=== PATIENT | female | born 1945 | race Asian ===

== ENCOUNTER 2016-06-20 22:46 | Emergency (ER) | payer MEDICARE, BC ==
[~2016-06-20] VITALS: Ht 154.9 cm; Wt 57.0 kg
[2016-06-20 23:01] VITALS: Ht 154.9 cm; Wt 57.0 kg
[2016-06-20] MEDS ORDERED: ONDANSETRON 4 MG INJ IV STA (23:12)
[2016-06-20] MEDS ORDERED: SOD CHLORIDE 0.9% 500 ML IV STA (23:12)
[2016-06-20 23:21] LABS: ADD SCAN DIFF NO
[2016-06-20 23:27] LABS: BASOPHILS % 0.4 % (0.0-2.0); EOSINOPHILS # 0.2 10^3/ul (0.0-0.5); EOSINOPHILS % 2.6 % (0.0-7.0); HEMOGLOBIN 14.9 g/dl (12.0-16.0); LYMPHOCYTES # 1.6 10^3/ul (0.8-2.9); LYMPHOCYTES % 17.6 % (15.0-51.0); MEAN CORPUSCULAR HEMOGLOBIN 30.8 pg (29.0-33.0); MEAN CORPUSCULAR HGB CONC 33.9 g/dl (32.0-37.0); MEAN CORPUSCULAR VOLUME 91.1 fl (82.0-101.0); MEAN PLATELET VOLUME 10.1 fl (7.4-10.4); MONOCYTE # 0.4 10^3/ul (0.3-0.9); MONOCYTES % 4.6 % (0.0-11.0); NEUTROPHIL # 6.8 10^3/ul (1.6-7.5); NEUTROPHILS % 74.4 % (39.0-77.0); PLATELET COUNT 209 10^3/UL (140-415); RED BLOOD COUNT 4.83 10^6/ul (4.20-5.40); RED CELL DISTRIBUTION WIDTH 12.1 % (11.5-14.5); WHITE BLOOD COUNT 9.1 10^3/ul (4.8-10.8)
[2016-06-20] MEDS ORDERED: MECLIZINE 12.5 MG TAB PO ONE (23:30)
[2016-06-20 23:38] LABS: CHLORIDE 101 mmol/L (97-110); INR 0.94; PROTIME 12.6 Sec (12.2-14.2); SODIUM 141 mmol/L (135-144)
[2016-06-20 23:39] LABS: POTASSIUM 3.8 mmol/L (3.5-5.1)
[2016-06-20 23:41] LABS: ANION GAP 17 (8-16); CARBON DIOXIDE 27 mmol/L (21-31); CREATININE 0.76 mg/dl (0.44-1.00)
[2016-06-20 23:42] LABS: BLOOD UREA NITROGEN 20 mg/dl (7-20); GLUCOSE 137 mg/dl (70-220)
--- NOTE | 2016-06-20 23:53 | RADRPT ---
PROCEDURE: XR Chest. CLINICAL INDICATION: Headaches. TECHNIQUE: Portable AP upright view of the chest was obtained. COMPARISON: None available. FINDINGS: The cardiomediastinal silhouette is within upper normal limits. The lungs are clear. There is no e vidence for pleural effusion, pneumothorax or pulmonary vascular congestion. The osseous structures are intact with no evidence for acute abnormality. Retrocardiac density unable to exclude hiatal he rnia. Mild calcification of the aortic arch is visible. Monitoring wires overlie the chest. RPTAT:HJJR IMPRESSION: 1. No evidence for acute intrathoracic pathology. 2. Probable hiatal hernia. 3. Aortic atherosclerosis is present. Physician Faraz Date Time Electronically viewed and signed by Physician Faraz on 06/20/2016 23:53 /
[2016-06-20 23:58] LABS: TROPONIN-I < 0.012 ng/ml (0.00-0.12)
--- NOTE | 2016-06-21 00:27 | RADRPT ---
PROCEDURE: CT brain without contrast CLINICAL INDICATION: Headaches TECHNIQUE: A CT of the brain was performed utilizing axial sections from the skull base through th e vertex without contrast. Sagittal and coronal images were also reformatted. The exam CTDIvol = 39. 64 mGy and DLP = 634.23 mGy-cm. COMPARISON: None available FINDINGS: No acute intracranial hemorrhage is identified. There is no mass effect or midline shift. No extra -axial fluid collection is seen. The ventricles and sulci are within normal limits for size and con figuration for the patient's provided age of 70 years, generalized appropriate tissue loss noted. T he density of the brain is within normal limits. Erazo-white differentiation is preserved. The osseous structures are unremarkable. The mastoid air cells and visualized paranasal sinuses are clear. RPTAT:HJJR IMPRESSION: Unremarkable noncontrast CT of the brain for the patient's provided age. Physician Faraz Date Time Electronically viewed and signed by Physician Faraz on 06/21/2016 00:27 /
--- NOTE | 2016-06-21 00:50 | ERD ---
ER Documentation Chief Complaint Date/Time DATE: 06/21/16 TIME: 00:46 Chief Complaint dizziness since 1900, then vomiting, worse w/ eyes open HPI This is a very pleasant 70 females and dizziness since 1900. She is then developed vomiting. She said the room was spinning. She says is worse with her eyes open. She said it is positional. No focal neurological complaints. No chest pain. No other current complaints. ROS All systems reviewed and are negative except as per history of present illness. Allergies Allergies: Coded Allergies: erythromycin base (Verified Allergy, Unknown, 06/20/16) PMhx/Soc Medical and Surgical Hx: pt denies Surgical Hx History of Surgery: No Anesthesia Reaction: No Hx Neurological Disorder: No Hx Respiratory Disorders: No Hx Cardiac Disorders: Yes (HTN) Hx Psychiatric Problems: No Hx Miscellaneous Medical Probl: No Hx Alcohol Use: No Hx Substance Use: No Hx Tobacco Use: No Smoking Status: Never smoker Physical Exam Vitals Vital Signs Date Time Temp Pulse Resp B/P Pulse Ox O2 Delivery O2 Flow Rate FiO2 06/20/16 23:01 98.3 60 20 161/82 100 Physical Exam Const: [] Head: Atraumatic Eyes: Normal Conjunctiva ENT: Normal External Ears, Nose and Mouth. Neck: Full range of motion..~ No meningismus. Resp: Clear to auscultation bilaterally Cardio: Regular rate and rhythm, no murmurs Abd: Soft, non tender, non distended. Normal bowel sounds Skin: No petechiae or rashes Back: No midline or flank tenderness Ext: No cyanosis, or edema Neur: Awake and alert Psych: Normal Mood and Affect Result Diagram: 06/20/16 2300 06/20/16 230 Results 24 hrs Laboratory Tests Test 06/20/16 23:00 Activated Partial Thromboplast Time 37.0Sec Anion Gap 17 Basophils # 0.010^3/ul Basophils % 0.4% Blood Urea Nitrogen 20mg/dl Calcium Level 10.0mg/dl Carbon Dioxide Level 27mmol/L Chloride Level 101mmol/L Creatinine 0.76mg/dl Eosinophils # 0.210^3/ul Eosinophils % 2.6% Glucose Level 137mg/dl Hematocrit 44.0% Hemoglobin 14.9g/dl INR International Normalized Ratio 0.94 Lymphocytes # 1.610^3/ul Lymphocytes % 17.6% Mean Corpuscular Hemoglobin 30.8pg Mean Corpuscular Hemoglobin Concent 33.9g/dl Mean Corpuscular Volume 91.1fl Mean Platelet Volume 10.1fl Monocytes # 0.410^3/ul Monocytes % 4.6% Neutrophils # 6.810^3/ul Neutrophils % 74.4% Nucleated Red Blood Cells # 0.010^3/ul Nucleated Red Blood Cells % 0.0/100WBC Platelet Count 11831^3/UL Potassium Level 3.8mmol/L Prothrombin Time 12.6Sec Prothrombin Time Ratio 1.0 Red Blood Count 4.8310^6/ul Red Cell Distribution Width 12.1% Sodium Level 141mmol/L Troponin I < 0.012ng/ml White Blood Count 9.110^3/ul Current Medications Medications (Trade) Dose Ordered Sig/Rishabh Route PRN Reason Start Time Stop Time Status Last Admin Dose Admin Sodium Chloride (NS) 500 ml @ 500 mls/hr Q1H STAT IV 06/20/16 23:12 06/21/16 00:11 DC 06/20/16 23:19 Ondansetron HCl (Zofran Inj) 4 mg ONCE STAT IV 06/20/16 23:12 06/20/16 23:17 DC 06/20/16 23:55 Meclizine HCl (Antivert) 50 mg ONCE ONCE PO 06/20/16 23:30 06/20/16 23:31 DC 06/20/16 23:59 Procedures/MDM EKG: Rate/Rhythm: Normal Sinus Rhythm QRS, ST, T-waves: No changes consistent w/ acute ischemia Impression: No evidence of ischemia or arrhythmia Chest X-ray 1V Interpreted by me: Soft Tissue: No acute abnormalities Bones: No acute abnormalities Mediastinum/Cardiac Silhouette/Lungs: No acute abnormalities CT of the head was negative Medical decision-makin-year-old female who looks to be benign positional vertigo. She feels much better. To be discharged on meclizine and Zofran. His return for worsening symptoms. Otherwise follow-up with primary care physician. Departure Diagnosis: Primary Impression: Dizziness Additional Impression: Vertigo Condition: Serious TERRY VAZQUEZ Jun 21, 2016 00:50
[2016-06-21] MEDS ORDERED: MECL12.574 PO (00:51)
[2016-06-21] MEDS ORDERED: ONDA4TAB14 PO (00:51)
[2016-06-21 01:10] VITALS: BP 138/68; PULSE 66; RESP 18
== END 2016-06-21 01:10 | disposition home or self-care (01) ==
LOC: E/R 22:46
DX: R42 Dizziness and giddiness (principal); R40.2362 Coma scale, best motor response, obeys commands, at arrival to emergency department; R40.2142 Coma scale, eyes open, spontaneous, at arrival to emergency department; R40.2232 Coma scale, best verbal response, inappropriate words, at arrival to emergency department; R11.2 Nausea with vomiting, unspecified; I10 Essential (primary) hypertension
CPT/HCPCS: 36415; 70450; 71010; 80048; 84484; 85025; 85610; 85730; 93005; 96374; 99285; J2405; J7040

== ENCOUNTER 2017-02-11 21:50 | Emergency (ER) | payer MEDICARE, BC ==
[~2017-02-11] VITALS: Wt 54.0 kg
[~2017-02-11 21:50] MED LIST: MECL12.574 PO; ONDA4TAB14 PO
[2017-02-12] MEDS ORDERED: hydrALAzine 20 MG INJ IV ONE
[2017-02-12 00:27] LABS: BASOPHILS % 0.5 % (0.0-2.0); EOSINOPHILS # 0.1 10^3/ul (0.0-0.5); EOSINOPHILS % 1.4 % (0.0-7.0); HEMATOCRIT 42.9 % (37.0-47.0); HEMOGLOBIN 14.6 g/dl (12.0-16.0); LYMPHOCYTES # 1.6 10^3/ul (0.8-2.9); LYMPHOCYTES % 19.1 % (15.0-51.0); MEAN CORPUSCULAR VOLUME 91.1 fl (82.0-101.0); MEAN PLATELET VOLUME 9.8 fl (7.4-10.4); MONOCYTE # 0.4 10^3/ul (0.3-0.9); MONOCYTES % 5.1 % (0.0-11.0); NEUTROPHIL # 6.1 10^3/ul (1.6-7.5); NEUTROPHILS % 73.4 % (39.0-77.0); PLATELET COUNT 217 10^3/UL (140-415); RED BLOOD COUNT 4.71 10^6/ul (4.20-5.40); RED CELL DISTRIBUTION WIDTH 11.8 % (11.5-14.5); WHITE BLOOD COUNT 8.3 10^3/ul (4.8-10.8)
[2017-02-12] MEDS ORDERED: ONDANSETRON 4 MG INJ IV STA (00:44)
--- NOTE | 2017-02-12 00:48 | RADRPT ---
PROCEDURE: XR Chest. CLINICAL INDICATION: Chest pain. TECHNIQUE: Portable AP semi erect view of the chest was obtained. COMPARISON: 06/20/2016 FINDINGS: The cardiomediastinal silhouette is within normal limits. The lungs are clear. There is no evidenc e for pleural effusion, pneumothorax or pulmonary vascular congestion. The osseous structures are i ntact with no evidence for acute abnormality. Calcification of the aorta is again noted. RPTAT:HJJR IMPRESSION: No evidence for acute intrathoracic pathology. Physician Faraz Date Time Electronically viewed and signed by Physician Faraz on 02/12/2017 00:48 JR/
[2017-02-12 00:53] LABS: ALANINE AMINOTRANSFERASE 41 IU/L (13-69); ALBUMIN 4.6 g/dl (3.3-4.9); ALBUMIN/GLOBULIN RATIO 1.39; ALKALINE PHOSPHATASE 75 IU/L (42-121); ANION GAP 16 (8-16); ASPARTATE AMINO TRANSFERASE 31 IU/L (15-46); BILIRUBIN,INDIRECT 0.7 mg/dl (0-1.1); BILIRUBIN,TOTAL 0.7 mg/dl (0.2-1.3); BLOOD UREA NITROGEN 18 mg/dl (7-20); CALCIUM 9.8 mg/dl (8.4-10.2); CARBON DIOXIDE 27 mmol/L (21-31); CHLORIDE 96 mmol/L (97-110); CREATININE 0.73 mg/dl (0.44-1.00); GLUCOSE 110 mg/dl (70-220); POTASSIUM 3.8 mmol/L (3.5-5.1); SODIUM 135 mmol/L (135-144); TOTAL PROTEIN 7.9 g/dl (6.1-8.1)
[2017-02-12 01:03] LABS: B-TYPE NATRIURETIC PEPTIDE 171 PG/ML (0-125)
--- NOTE | 2017-02-12 01:18 | RADRPT ---
PROCEDURE: Noncontrast CT Head. CLINICAL INDICATION: Headache TECHNIQUE: Noncontrast CT of the head was obtained. The administered radiation dose was CTDI vol = 45 mGy, DLP = 720 mGy-cm. One or more of the following dose reduction techniques were used: automate d exposure control, adjustment of the mA and/or kV according to patient size and/or use of iterative reconstruction technique. COMPARISON: 06/21/16 FINDINGS: The ventricles and cortical sulci are mildly enlarged. There is mild decreased attenuation within t he periventricular and subcortical white matter compatible with chronic microvascular changes. There is no acute intracranial hemorrhage or extra-axial fluid collection. There is no mass effect . No midline shift is identified. There is no loss of carcamo-white differentiation to suggest acute in farction. The orbits are within normal limits. The paranasal sinuses are well aerated. No destructive osseous lesion is identified. IMPRESSION: No acute findings. Mild diffuse parenchymal volume loss and chronic microvascular changes. RPTAT: HIKT .Arya Farfan MD, MD Date Time Electronically viewed and signed by .Arya Farfan MD, on 02/12/2017 01:18 .T/
[2017-02-12 01:35] LABS: TROPONIN-I < 0.012 ng/ml (0.00-0.12)
--- NOTE | 2017-02-12 02:36 | ERD ---
ER Documentation Chief Complaint Chief Complaint c/o htn/headache/dizziness HPI This is a very pleasant 70-year-old female complains of elevated blood pressure headache. Denies any nausea vomiting fevers chills. Denies any other current complaints. Headache started today when she noticed her blood pressure was 200 systolic. History of high blood pressure on atenolol with compliance with medical therapy. No chest pain. No focal neurological complaints. No other current issues. ROS All systems reviewed and are negative except as per history of present illness. Medications Home Meds Active Scripts Ondansetron (Ondansetron Odt) 4 Mg Tab.rapdis, 4 MG PO Q6H Y for NAUSEA AND/OR VOMITING, #10 TAB Prov:TERRY VAZQUEZ S. 06/21/16 Meclizine Hcl* (Antivert*) 12.5 Mg Tab, 25 MG PO Q6H Y for DIZZINESS, #30 TAB Prov:TERRY VAZQUEZ S. 06/21/16 Allergies Allergies: Coded Allergies: erythromycin base (Verified Allergy, Unknown, 06/20/16) PMhx/Soc History of Surgery: No Anesthesia Reaction: No Hx Neurological Disorder: No Hx Respiratory Disorders: No Hx Cardiac Disorders: Yes (HTN) Hx Psychiatric Problems: No Hx Miscellaneous Medical Probl: No Hx Alcohol Use: No Hx Substance Use: No Hx Tobacco Use: No Smoking Status: Never smoker Physical Exam Vitals Vital Signs Date Time Temp Pulse Resp B/P Pulse Ox O2 Delivery O2 Flow Rate FiO2 02/12/17 00:59 77 14 132/81 98 Room Air 02/11/17 23:44 64 14 179/81 100 Room Air 02/11/17 23:23 18 210/91 98 Room Air 02/11/17 21:58 99.1 68 18 206/93 98 Physical Exam Const: [] Head: Atraumatic Eyes: Normal Conjunctiva ENT: Normal External Ears, Nose and Mouth. Neck: Full range of motion..~ No meningismus. Resp: Clear to auscultation bilaterally Cardio: Regular rate and rhythm, no murmurs Abd: Soft, non tender, non distended. Normal bowel sounds Skin: No petechiae or rashes Back: No midline or flank tenderness Ext: No cyanosis, or edema Neur: Awake and alert Psych: Normal Mood and Affect Result Diagram: 02/11/17 2331 10/22/17 2331 Results 24 hrs Laboratory Tests Test 02/11/17 23:31 White Blood Count 8.310^3/ul Red Blood Count 4.7110^6/ul Hemoglobin 14.6g/dl Hematocrit 42.9% Mean Corpuscular Volume 91.1fl Mean Corpuscular Hemoglobin 31.0pg Mean Corpuscular Hemoglobin Concent 34.0g/dl Red Cell Distribution Width 11.8% Platelet Count 20788^3/UL Mean Platelet Volume 9.8fl Neutrophils % 73.4% Lymphocytes % 19.1% Monocytes % 5.1% Eosinophils % 1.4% Basophils % 0.5% Nucleated Red Blood Cells % 0.0/100WBC Neutrophils # 6.110^3/ul Lymphocytes # 1.610^3/ul Monocytes # 0.410^3/ul Eosinophils # 0.110^3/ul Basophils # 0.010^3/ul Nucleated Red Blood Cells # 0.010^3/ul Sodium Level 135mmol/L Potassium Level 3.8mmol/L Chloride Level 96mmol/L Carbon Dioxide Level 27mmol/L Anion Gap 16 Blood Urea Nitrogen 18mg/dl Creatinine 0.73mg/dl Glucose Level 110mg/dl Calcium Level 9.8mg/dl Total Bilirubin 0.7mg/dl Direct Bilirubin 0.00mg/dl Indirect Bilirubin 0.7mg/dl Aspartate Amino Transf (AST/SGOT) 31IU/L Alanine Aminotransferase (ALT/SGPT) 41IU/L Alkaline Phosphatase 75IU/L Troponin I < 0.012ng/ml B-Type Natriuretic Peptide 171PG/ML Total Protein 7.9g/dl Albumin 4.6g/dl Globulin 3.30g/dl Albumin/Globulin Ratio 1.39 Current Medications Medications (Trade) Dose Ordered Sig/Rishabh Route PRN Reason Start Time Stop Time Status Last Admin Dose Admin Hydralazine HCl (Apresoline) 20 mg ONCE ONCE IV 02/12/17 00:00 02/12/17 00:01 DC 02/11/17 23:55 Ondansetron HCl (Zofran Inj) 4 mg ONCE STAT IV 02/12/17 00:44 02/12/17 00:45 DC 02/12/17 00:54 Procedures/MDM EKG: Rate/Rhythm: [Normal Sinus Rhythm] QRS, ST, T-waves: [No changes consistent w/ acute ischemia] Impression: [No evidence of ischemia or arrhythmia] Chest X-ray 1V Interpreted by me: Soft Tissue: No acute abnormalities Bones: No acute abnormalities Mediastinum/Cardiac Silhouette/Lungs: [No acute abnormalities] Patient's neurologic symptoms have stabilized while they have been evaluated in the department and are appropriate for outpatient work up. No e/o meningitis, intracranial bleed, seizure, stroke. Patient's blood pressure was elevated (>120/80) but appears stable without evidence of hypertension emergency or urgency. The patient was counseled about the risks of hypertension and urged to pursue outpatient monitoring and therapy within a week with their primary care physician. Departure Diagnosis: Primary Impression: Hypertension Hypertension type: essential hypertension Qualified Code: I10 - Essential hypertension Condition: Stable TERRY VAZQUEZ Feb 12, 2017 02:36
[2017-02-12] MEDS ORDERED: CLON-379 PO (02:37)
[2017-02-12 03:22] VITALS: BP 124/68; PULSE 77; RESP 16
== END 2017-02-12 03:22 | disposition home or self-care (01) ==
LOC: E/R 21:50
DX: I10 Essential (primary) hypertension (principal); R40.2142 Coma scale, eyes open, spontaneous, at arrival to emergency department; R40.2252 Coma scale, best verbal response, oriented, at arrival to emergency department; R40.2362 Coma scale, best motor response, obeys commands, at arrival to emergency department
CPT/HCPCS: 36415; 70450; 71010; 80053; 83880; 84484; 85025; 93005; 96374; 96375; 99285; J0360; J2405